=== PATIENT | male | born 2000 | race Caucasian/White ===

== ENCOUNTER 2023-11-22 20:03 | Emergency (ER) | payer BC ==
[2023-11-22] MEDS ORDERED: Sodium Chloride 0.9% 10 ML Syringe FLUSH PRN (20:40)
[2023-11-22] MEDS: Lactated Ringers 1,000 ML IV ONE ×2 (20:45→22:00)
[2023-11-22 20:50] LABS: BASOPHILS ABSOLUTE AUTO 0.1 x10^3/uL (0.0-0.2); BASOPHILS PERCENT AUTO 0.4 % (0.2-1.2); EOSINOPHILS ABSOLUTE AUTO 0.2 x10^3/uL (0.0-0.5); EOSINOPHILS PERCENT AUTO 1.4 % (0.0-4.0); HEMATOCRIT 45.9 % (40.0-52.0); HEMOGLOBIN 16.5 g/dL (14.0-18.0); IMMATURE GRAN ABSOLUTE AUTO 0.02 x10^3/uL (0.00-0.07); LYMPHOCYTES ABSOLUTE AUTO 3.3 x10^3/uL (1.0-4.8); LYMPHOCYTES PERCENT AUTO 27.2 % (25.0-50.0); MEAN CORPUSCULAR HGB CONC 35.9 g/dL (32.0-36.0); MEAN CORPUSCULAR VOLUME 80.7 fL (78.0-93.0); MONOCYTES ABSOLUTE AUTO 1.2 x10^3/uL (0.0-0.8); NEUTROPHILS ABSOLUTE AUTO 7.5 x10^3/uL (1.8-7.7); NEUTROPHILS PERCENT AUTO 60.8 % (50.0-80.0); PLATELET COUNT,PLT 249 x10^3/uL (130-400); RED BLOOD CELL COUNT 5.69 x10^6/uL (4.5-6.0); WHITE BLOOD CELL COUNT,WBC 12.2 x10^3/uL (4.0-10.0)
[2023-11-22 21:09] LABS: A/G RATIO 1.17; ALANINE AMINOTRANSFERASE,ALT 55 U/L (16-63); ALBUMIN 4.2 g/dL (3.4-5.0); ALKALINE PHOSPHATASE 62 U/L (46-116); ASPARTATE AMNIOTRANSFERASE,AST 26 U/L (15-37); BILIRUBIN TOTAL 1.5 mg/dL (0.2-1.0); BLOOD UREA NITROGEN,BUN 16 mg/dL (7-18); C-REACTIVE PROTEIN 0.56 mg/dL (<=0.50); CALCIUM 9.6 mg/dL (8.5-10.1); CARBON DIOXIDE,CO2 27 mmol/L (21-32); CHLORIDE,CL 104 mmol/L (98-107); CREATININE 0.9 mg/dL (0.70-1.30); GLUCOSE RANDOM 129 mg/dL (70-99); LIPASE 32 U/L (19-71); POTASSIUM,K 4.1 mmol/L (3.5-5.1); PROTEIN TOTAL,TP 7.8 g/dL (6.4-8.2); SODIUM,NA 141 mmol/L (136-145)
[2023-11-22 21:10] LABS: ANION GAP 14.1 mmol/L (5-15); ESTIMATED GFR 124 mL/min (>=60)
[2023-11-22] MEDS: Ondansetron 4 MG/2 ML SDV IV ONE (21:25)
[2023-11-22] MEDS: Alum Hydrox/Mag Hydrox/Simeth 30 ML, Lidocaine 2% 15 ML PO ONE (21:25)
[2023-11-22] MEDS: Take Home: Ondansetron 4 MG Tab.DIS, 5 Tab Pack PO ONE (22:50)
== END 2023-11-22 22:57 | disposition home or self-care (01) ==
LOC: VM.ED 20:03
DX: R07.2 Precordial pain (principal); R07.89 Other chest pain; R11.0 Nausea
CPT/HCPCS: 80053; 83690; 84484; 85025; 86140; 93005; 93010; 96361; 96374; 99284; 99285-25; A9270-GY; J2405; J7120; Q0162

== ENCOUNTER 2024-03-03 20:11 | Emergency (ER) | payer BC ==
[2024-03-03 20:49] LABS: BASOPHILS ABSOLUTE AUTO 0.1 x10^3/uL (0.0-0.2); BASOPHILS PERCENT AUTO 0.5 % (0.2-1.2); EOSINOPHILS ABSOLUTE AUTO 0.3 x10^3/uL (0.0-0.5); EOSINOPHILS PERCENT AUTO 2.2 % (0.0-4.0); HEMOGLOBIN 17.2 g/dL (14.0-18.0); IMMATURE GRAN ABSOLUTE AUTO 0.03 x10^3/uL (0.00-0.07); LYMPHOCYTES ABSOLUTE AUTO 3.8 x10^3/uL (1.0-4.8); MEAN CORPUSCULAR HGB CONC 35.8 g/dL (32.0-36.0); MEAN CORPUSCULAR VOLUME 80.8 fL (78.0-93.0); MONOCYTES ABSOLUTE AUTO 0.9 x10^3/uL (0.0-0.8); MONOCYTES PERCENT AUTO 7.3 % (2.0-11.0); NEUTROPHILS ABSOLUTE AUTO 7.6 x10^3/uL (1.8-7.7); NEUTROPHILS PERCENT AUTO 59.8 % (50.0-80.0); PLATELET COUNT,PLT 253 x10^3/uL (130-400); RED BLOOD CELL COUNT 5.94 x10^6/uL (4.5-6.0); WHITE BLOOD CELL COUNT,WBC 12.7 x10^3/uL (4.0-10.0)
== END 2024-03-03 21:26 | disposition home or self-care (01) ==
LOC: VM.ED 20:11
DX: R10.84 Generalized abdominal pain (principal); Z79.899 Other long term (current) drug therapy
CPT/HCPCS: 36415; 85025; 99283; 99284

== ENCOUNTER 2024-12-12 19:20 | Emergency (ER) | payer BC | END 2024-12-12 22:30 | disposition home or self-care (01) | LOC: VM.ED 19:20 | DX: M48.061 Spinal stenosis, lumbar region without neurogenic claudication (principal); E11.9 Type 2 diabetes mellitus without complications; Z90.49 Acquired absence of other specified parts of digestive tract | CPT/HCPCS: 72110; 99284 ==